=== PATIENT | female | born 1940 | race Caucasian/White ===

== ENCOUNTER 2018-02-24 11:12 | Emergency (ER) | payer MEDICARE, OTHER ==
--- NOTE | 2018-02-24 11:58 | Diagnostic Imaging Report ---
LOUIS OCHOA [facility] [address] [facility] [address] [place] [address]. [id number] Report Submission Date: Feb 24, 2018 11:48:16 AM CDT Patient Study Name: SHERICE MANN Date: Feb 24, 2018 11:25:54 AM CDT Modality Type: DX Gender: F Description: CHEST : 36 Institution: [facility] Physician: LOUIS OCHOA Portable chest CLINICAL HISTORY: Hypertension. FINDINGS: Examination of the chest in single portable AP view demonstrates the lungs be clear. Cardiovascular and mediastinal silhouettes are within normal limits. Monitor leads superimpose the chest. IMPRESSION: No active disease. Electronically signed on Feb 24, 2018 11:48:16 AM CDT by: Brian MUÑOZ
[2018-02-24] MEDS: METOPROLOL TARTRATE 5 MG/5 ML VIAL IVP ONE (12:01)
--- NOTE | 2018-02-24 12:32 | ED Physician Documentation ---
General Adult - HISTORIAN Historian: patient - HPI Stated Complaint: High BP with pounding in ears for several days Chief Complaint: Ear Complaints Additional Information: Patient presents to ED with a 4-5 day history of high blood pressure with associated ear pounding sensation. She states her symptoms began on Monday. She took her blood pressure and it was elevated 170s/90s. She normally runs 140s/80s. Her home medications include Norvasc, lisinopril and HCTZ. She also takes a daily allergy medication but is unsure if it contains a decongestant. Upon arrival to ED her blood pressure is 206/85. Patient reports similar symptoms about 2 years ago when she had a urinary tract infection. Onset: days ago (5) Timing: still present Severity: moderate Further Comments: no - ROS CONST: denies: recent illness EYES/ENT: none CVS/RESP: none GI/: none MS/SKIN/LYMPH: none NEURO/PSYCH: denies: headache - PAST HX Past History: hypertension Other History: diabetes Type 2 Allergies/Adverse Reactions: Allergies Allergy/AdvReac Type Severity Reaction Status Date / Time No Known Allergies Allergy Verified 02/04/16 03:09 Home Medications: Ambulatory Orders Medication Instructions Recorded Levothyroxine Sodium 75 mcg PO D 03/06/14 Lisinopril/Hydrochlorothiazide 2 each PO D 03/06/14 [Zestoretic 20-12.5 Tablet] Lovastatin 10 mg PO D 03/06/14 Metformin HCl [Glucophage] 1,000 mg PO BID 03/06/14 Metoprolol Succinate 200 mg PO BID 03/06/14 amLODIPine BESYLATE [Norvasc] 10 mg PO D 03/06/14 Calcium Carbonate [[id number]] 500 mg PO D 02/24/18 Ciprofloxacin HCl [Cipro] 500 mg PO BID 3 Days tablet 02/24/18 Glipizide 2.5 mg PO D 02/24/18 Multivitamin [One Daily Essential] 1 tab PO D 02/24/18 hydrALAZINE HCL [Apresoline] 50 mg PO BID #30 tablet 02/24/18 - SOCIAL HX Smoking History: non-smoker - FAMILY HX Family History: Yes - VITAL SIGNS Vital Signs: Vital Signs Temp Pulse Resp BP Pulse Ox 98.2 F 108 H 18 206/85 95 02/24/18 11:13 02/24/18 11:13 02/24/18 11:13 02/24/18 11:13 02/24/18 11:13 - REVIEWED ASSESSMENTS Nursing Assessment Reviewed: Yes Vitals Reviewed: Yes Progress - Results/Orders Results/Orders: Troponin <0.03 UA trace blood, trace leukocytes, 3+ protein Portable chest CLINICAL HISTORY: Hypertension. FINDINGS: Examination of the chest in single portable AP view demonstrates the lungs be clear. Cardiovascular and mediastinal silhouettes are within normal limits. Monitor leads superimpose the chest. IMPRESSION: No active disease. Electronically signed on Feb 24, 2018 11:48:16 AM CDT by: Brian Mason - EKG/XRAY/CT EKG: NSR ED Results Lab/Radiology - Lab Results Lab Results: Lab Results 02/24/18 11:47 Troponin I < 0.03 ng/mL L ng/mL (0.03-0.06) Portable chest CLINICAL HISTORY: Hypertension. FINDINGS: Examination of the chest in single portable AP view demonstrates the lungs be clear. Cardiovascular and mediastinal silhouettes are within normal limits. Monitor leads superimpose the chest. IMPRESSION: No active disease. Electronically signed on Feb 24, 2018 11:48:16 AM CDT by: Brian Mason - Orders Orders: ED Orders Category Date Time Status Place IV Lock 1T Care 02/24/18 11:23 Active CHEST 1VIEW [RAD] Stat Exams 02/24/18 Completed BMP Routine Lab 02/24/18 11:47 Received TROPONIN I (cTnI) Stat Lab 02/24/18 11:47 Completed UA [URINALYSIS] Routine Lab 02/24/18 Ordered Hydralazine HCl [Apresoline] Med 02/24/18 12:11 Discontinued 50 mg PO 1T ONE Metoprolol Tartrate [Toprol] Med 02/24/18 11:23 Discontinued 5 mg IVP NOW ONE EKG WITH COMPARISON Stat Ther 02/24/18 Ordered General Adult Physical Exam - PHYSICAL EXAM GENERAL APPEARANCE: no distress EENT: RADHA NECK: normal inspection RESPIRATORY: no resp distress, breath sounds normal CVS: reg rate & rhythm ABDOMEN: soft, normal bowel sounds, non-tender BACK: normal inspection, no CVA tenderness SKIN: normal color, warm/dry, NR, INT, PAL, DR EXTREMITIES: non-tender, normal range of motion, no evidence of injury, no edema, J, 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: oriented X3 Discharge Clincal Impression: Urinary tract infection Qualifiers: Urinary tract infection type: acute cystitis Hematuria presence: with hematuria Qualified Code(s): N30.01 - Acute cystitis with hematuria Hypertension Qualifiers: Hypertension type: essential hypertension Qualified Code(s): I10 - Essential (primary) hypertension Prescriptions: Ciprofloxacin HCl [Cipro] 500 mg PO BID 3 Days tablet hydrALAZINE HCL [Apresoline] 50 mg PO BID #30 tablet Referrals: Robbin Lara MD [Primary Care Provider] - 2 Days Disposition: 01 HOME, SELF-CARE Decision to Admit: NO Date of Decison to Admit: 02/24/18 Decision Time: 13:30
[2018-02-24] MEDS: HYDRALAZINE HCL 25 MG TABLET PO ONE (12:39)
[2018-02-24 12:58] LABS: eGFR (Non-African) > 60
[2018-02-24] MEDS: ONDANSETRON HCL 4 MG TAB.RAPDIS PO ONE (14:05)
[2018-02-24] MEDS: CloNIDine HCL 0.1 MG TABLET PO ONE (14:05)
[2018-02-24 15:46] VITALS: BP 154/66
[2018-02-25 07:29] LABS: APPEARANCE,URINE CLEAR (CLEAR); COLOR,URINE YELLOW (YELLOW); OCCULT BLOOD,URINE TRACE-INTACT (NEGATIVE)
[2018-02-25 07:30] LABS: PH URINE 6.5 (5.0 - 8.0); UROBILINOGEN URINE 0.2 Eu (0.2-1.0)
== END 2018-02-24 15:20 | disposition home or self-care (01) ==
LOC: ED 11:12
DX: N30.01 Acute cystitis with hematuria (principal); I10 Essential (primary) hypertension
CPT/HCPCS: 71045; 80048; 81002; 84484; 93005; A9270; J3490; 96374; 99284; S1016